=== PATIENT | male | born 1925 | race Caucasian/White ===

== ENCOUNTER 2016-12-28 21:08 | Inpatient (IN) | payer MEDICARE, OTHER ==
--- NOTE | ~2016-12-28 | OP ---
Record Of Operation [facility] [address] [place]. [address] NAME: SEMAJ HENDERSON : [birth year] STATUS : ADM IN PAT#: [id number] AGE: 89 ADM/REG DATE : 12/28/16 MR#: [id number] REPORT SERV DATE: 12/30/16 DICTATED BY: SEMAJ MONTOYA JR. DATE: 12/29/16 REPORT STATUS : Draft TRANSCRIBED BY: MODL DATE: 12/29/16 DATE OF PROCEDURE: 12/28/2016 SURGEON: Semaj Montoya M.D. HOTEL SERVER: Valerie Jensen. PROCEDURE: Exploratory laparotomy and splenectomy. PREOPERATIVE DIAGNOSIS: Splenic rupture. POSTOPERATIVE DIAGNOSIS: Splenic rupture. ANESTHESIA: General. INDICATIONS: This patient had presented to the emergency department with complaints of abdominal pain after having sustained a fall. He was admitted for observation and initially thought to have a potentially septic type, but then had progressive abdominal tenderness, had a CT scan which demonstrated splenic injury with hemoperitoneum. He had some drop in his hemoglobin and exploration for treatment was indicated. FINDINGS: On exploration of the abdomen, there was a large amount of blood with both clot and liquid present and a large amount within the left upper quadrant. The stomach was also grossly distended with air. The spleen was obviously injured with a significant hematoma incorporating two-thirds of the spleen and capsular tear. Splenectomy was performed. No other significant findings were encountered. DESCRIPTION OF PROCEDURE: With adequate general anesthesia, the patient was placed in a supine position. An upper midline incision was made. The dissection was carried down sharply through the subcutaneous tissues. The fascia and peritoneum were opened. The peritoneal cavity was entered. The above-noted findings were encountered. Then, the spleen was mobilized by dividing its inferior attachments colic limb with electrocautery. Then, the splenic vessels were identified, clamped, and divided securing the smaller vessels with clips, enlarged with clamps. Remaining soft tissue attachments were divided sharply and the spleen was then removed from the tissues. It was then submitted to Pathology. Bleeders were controlled with sutures of silk. The wound was irrigated with copious amounts of saline. Hemostasis was assured. The wound was closed in the fascial layer with a 0 PDS, subcutaneous Vicryl, and dermal Monocryl. An overlay negative pressure dressing was placed. The patient tolerated the procedure well and left the operating room in satisfactory condition. The estimated blood loss for the procedure was 100 mL. ISSA/DILIP Record Of [address] [address] NAME: SEMAJ HENDERSON JOYCE : [birth year] STATUS : ADM IN PAT#: [id number] AGE: 89 ADM/REG DATE : 12/28/16 MR#: [id number] REPORT SERV DATE: 12/30/16 DICTATED BY: SEMAJ MONTOYA JR. DATE: 12/29/16 REPORT STATUS : Draft TRANSCRIBED BY: DILIP DATE: 12/29/16 Semaj Montoya Jr., M.D. / [id number] CC: Ramirez Nye M.D.
--- NOTE | ~2016-12-28 | HP ---
History And Physical [place] [address] [facility] [place]. [address] NAME: SEMAJ HENDERSON : [birth year] STATUS : ADM IN [facility]#: [id number] AGE: 89 ADM/REG DATE : 12/28/16 MR#: [id number] REPORT SERV DATE: 12/29/16 DICTATED BY: LETY DE JESUS DATE: 12/28/16 REPORT STATUS : Draft TRANSCRIBED BY: MODL DATE: 12/28/16 DATE OF ADMISSION: 12/28/2016 CHIEF COMPLAINT: An 89-year-old male presenting with increasing chest symptoms and now hypotension with syncopal episode. HISTORY OF PRESENT ILLNESS: The patient's history was obtained through careful interview with patient and daughter coupled with review of [facility] medical records. The patient has really been ill for about six weeks now. He went to see his primary care physician about a month ago and was told that he had some kind of "viral" illness, possibly the flu, and was told specifically "it was not bacteria." Therefore, he was never placed on antibiotics at that time. He has continued to feel very ill and weak and debilitated and shaky. In two and half weeks, he went to see his primary care physician again and had blood work that looked "good." But today without warning, he simply passed out while he was at his [employer]. He hit the left side of his head and the left side of his chest and has been uncomfortable ever since. He describes a left chest discomfort, worsened by the fall and injury, in aching quality, 5 to 8/10 severity. No headache. No light headedness now. He has had recent nausea. No vomiting. No diarrhea. He denies at this time shortness of breath but he does have exertional fatigue. No cough. No fevers or chills. REVIEW OF SYSTEMS: Otherwise, a 14-point review of systems was obtained and was negative. PAST MEDICAL HISTORY: 1. 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 2. Hypertension. 3. L1 compression fracture. 4. Benign prostatic hypertrophy. 5. Thrombocytosis, on chronic hydroxyurea, followed by Dr. Nancy Addison. 6. No cardiac disease. No asthma. No previous pneumonia. PAST SURGICAL HISTORY: 1. Left shoulder surgery. 2. Inguinal hernia repair. 3. Basal cell carcinoma removed from the skin. History And Physical [place] [address] [facility] [place]. [address] NAME: SEMAJ HENDERSON : [birth year] STATUS : ADM IN [facility]#: [id number] AGE: 89 ADM/REG DATE : 12/28/16 MR#: [id number] REPORT SERV DATE: 12/29/16 DICTATED BY: LETY DE JESUS DATE: 12/28/16 REPORT STATUS : Draft TRANSCRIBED BY: DILIP DATE: 12/28/16 ALLERGIES: PENICILLIN, CIPRO, AND WASP VENOM. SOCIAL HISTORY: Quit smoking in 1969. Drinks occasional beer or gin. He has been to his for 64 years. They live in [place], [place]. He has two children. He is a retired senior analytical chemist, now part-time manages a subdivision. FAMILY HISTORY: Mother and father with cancer. Father with multiple myeloma. Mother with breast cancer. She of congestive heart failure. CURRENT MEDICATIONS: Include aspirin 81 mg p.o. daily, atenolol 12.5 mg p.o. daily, vitamin B complex, vitamin D, Lexapro 10 mg p.o. daily, glucosamine, hydroxyurea 500 mg p.o. b.i.d., Namenda XR 20 mg p.o. daily, saw palmetto 1350 mg p.o. in the morning and 900 mg in the evening, nasal spray, and Flomax 0.4 mg p.o. daily. PHYSICAL EXAMINATION: VITAL SIGNS: Temperature 98.8, pulse 66, blood pressure initially 80/39 but improved to 128/64 after normal saline bolus, respiratory rate 18, and O2 saturation 92% on 4 L nasal cannula. GENERAL: A pleasant, cooperative male, no distress at this time. HEENT: Pupils equal, round, and reactive to light. No conjunctival pallor. No scleral icterus. Nares are patent. Oropharynx is clear of obstruction. Dry mucous membranes. NECK: Trachea midline. No thyromegaly. LYMPH: No cervical lymphadenopathy. No supraclavicular lymphadenopathy. RESPIRATORY: The patient has diminished breath sounds at the base of both lungs, and I do not appreciate any focal egophony. However, no wheezes, no rales. He has a labored respiratory effort, however. CARDIOVASCULAR: Regular rate and rhythm. No murmurs, rubs, or gallops. No current extremity edema is appreciated. ABDOMEN: Soft, nontender, nondistended. Normal bowel sounds auscultated throughout. No hepatosplenomegaly. DERMATOLOGICAL: Diaphoretic. Warm extremities. No pallor. No cyanosis. PSYCHIATRIC: Normal affect. Good mood. Alert and oriented x3. LABORATORY DATA: White blood cell count 21.4, hemoglobin 11, hematocrit 32, MCV of 106.7, and platelets 623. Sodium 133, potassium 4.1, chloride 96, bicarb 23, BUN 23, creatinine 1.48 from baseline creatinine of 1.1, glucose 178. Troponin negative. INR 1.3. Liver enzymes within normal limits. STUDIES: 1. Chest x-ray by my own evaluation shows what appears to be a right middle lobe pneumonia. 2. EKG by my own evaluation shows sinus rhythm, right bundle-branch block. 3. CT scan of the brain without contrast shows no acute intracranial process. ASSESSMENT AND PLAN: History And Physical [address] [address] NAME: SEMAJ HENDERSON : [birth year] STATUS : ADM IN [facility]#: [id number] AGE: 89 ADM/REG DATE : 12/28/16 MR#: [id number] REPORT SERV DATE: 12/29/16 DICTATED BY: LETY DE JESUS DATE: 12/28/16 REPORT STATUS : Draft TRANSCRIBED BY: DILIP DATE: 12/28/16 1. Sepsis with white blood cell count of 21.4, hypotension, lactic acid pending, hypoxia. Check blood cultures. Place on IV antibiotics. Hypotension responded to IV fluid boluses with normotensive state for two hours in the emergency department afterwards. 2. Hypoxic respiratory failure. Provide supportive care. 3. Community-acquired pneumonia. Check blood cultures. Place on IV antibiotics. The possibility of a post influenza pneumonia (?). We will cover with IV vancomycin for now. 4. Acute kidney injury with shock and syncope. Place on IV fluids. Check urinalysis. 5. Chronic thrombocytosis, on hydroxyurea. KPL/MODL Lety De Jesus M.D. / [id number] CC: Annette Abrams M.D.
--- NOTE | ~2016-12-28 | DS ---
Discharge Summary [facility] [address] [place]. [address] NAME: SEMAJ HENDERSON : [birth year] STATUS : DIS IN PAT#: [id number] AGE: 89 ADM/REG DATE : 12/28/16 MR#: [id number] REPORT SERV DATE: 01/08/17 DICTATED BY: LEVAR PERDUE DATE: 01/07/17 REPORT STATUS : Draft TRANSCRIBED BY: MODL DATE: 01/07/17 ADMISSION DATE: 12/28/2016 DISCHARGE DATE: 01/07/2017 DISCHARGE DIAGNOSES: 1. Splenic rupture, status post ex lap and splenectomy on 12/[address] Galindo. 2. Hypertension. 3. Orthostatic hypotension. 4. History of syncope with positive tilt on preadmission beta-joellen. 5. Myeloproliferative disorder with thrombocytosis, on Hydrea. 6. Prediabetes. 7. Left ninth rib fracture associated with a fall. 8. Acute respiratory failure, hypoxic on admission. 9. Pulmonary infiltrates, thought to be atelectasis. 10.Voiding dysfunction. 11.Osteoporosis. 12.Acute blood loss anemia related to above, status post two PRBCs. CONSULTS: 1. General Surgery, Dr. Galindo. 2. Oncology was also contacted, although not formally consulted. PROCEDURES: Ex lap and splenectomy on 12/28/[address] Galindo. HOSPITAL COURSE: This is an 89-year-old gentleman, who was admitted to the hospital with initial diagnosis of sepsis perhaps related to community-acquired pneumonia. The patient also had sustained a fall. For details, please refer to excellent H and P by Dr. Irby. In summary, by the second day of the hospital stay, the patient was found to have a splenic rupture and he underwent an emergent ex lap with splenectomy as mentioned above. For details, please refer to interim discharge summary dictated by Dr. Ramirez Nye. I assumed care of this patient on 01/05/2017 and by then, the patient had already made significant recovery and he was doing well. The patient had an echocardiogram that was pending, which was quite benign with LV systolic function of 55% with mild LV diastolic dysfunction, right ventricle systolic function was intact, and the patient just had a moderate mitral regurgitation with left atrial dilatation. Otherwise, the patient was simply monitored for continued recovery postop. The patient was continuing to have hypoxia, requiring oxygen and thus, he was given a dose of Lasix with which the patient diuresed well and his oxygen requirement actually decreased. The patient's electrolyte has been completely stable throughout the entire time I took care of the patient. In regard to his thrombocytosis, the patient was started on double the dose of hydroxyurea when I assumed care. The patient's platelet was as high as 780, but it was on a downtrend and on the day of discharge, it is down to 696. The patient's white blood cell count was slightly elevated at 15.8 on the day of discharge, but his procalcitonin level was normal and he did not exhibit any signs and symptoms of sepsis. The patient is now being discharged to [facility] to continue rehab and to be continued to be monitored closely. Discharge Summary [address] [place]. [address] NAME: SEMAJ HENDERSON : [birth year] STATUS : DIS IN [facility]#: [id number] AGE: 89 ADM/REG DATE : 12/28/16 MR#: [id number] REPORT SERV DATE: 01/08/17 DICTATED BY: LEVAR PERDUE DATE: 01/07/17 REPORT STATUS : Draft TRANSCRIBED BY: DILIP DATE: 01/07/17 DISCHARGE MEDICATIONS: No changes, except for increased hydroxyurea dose to twice daily. DISPOSITION: Discharged to [facility]. FOLLOWUP: 1. Please follow up with PCP in the next one to two weeks. 2. Please follow up with Dr. Nancy Addison, his oncologist, in the next one to two weeks. 3. Please follow up with Dr. Galindo as instructed. A total of 40 minutes spent in coordinating this patient's discharge today. Cherelle/DILIP Levar Perdue MD / [id number] CC: Levar Perdue MD
--- NOTE | ~2016-12-28 | IDS ---
Interim Discharge Summary [place] [id number] [facility] [place]. [address] NAME: SEMAJ HENDERSON : [birth year] STATUS : ADM IN [facility]#: [id number] AGE: 89 ADM/REG DATE : 12/28/16 MR#: [id number] REPORT SERV DATE: 01/05/17 DICTATED BY: DUGLAS NYE DATE: 01/04/17 REPORT STATUS : Draft TRANSCRIBED BY: MODL DATE: 01/04/17 ADMISSION DATE: 12/28/2016 DISCHARGE DATE: CURRENT DIAGNOSES: 1. Splenic rupture status post exploratory laparotomy and splenectomy 12/28/2016, Dr. Galindo. 2. Hypertension. 3. Orthostatic hypotension. 4. History of syncope with positive tilt on pre-admission beta-joellen. 5. Myeloproliferative disorder with thrombocytosis on Hydrea. Increased thrombocytosis post splenectomy. 6. Pre-diabetes. 7. Left 9th rib fracture, associated with fall. 8. Acute respiratory failure, hypoxemic, present on admission. 9. Pulmonary infiltrates, thought to be atelectasis. 10.Voiding dysfunction. 11.Osteoporosis with history of compression fractures. 12.Acute blood loss anemia associated with present illness, requiring transfusion. 13.Electrolyte abnormalities associated with present illness and postop resuscitation, improved. OPERATION AND PROCEDURES: See above. PRESENT ILLNESS: This is an 89-year-old white male who was triaged in the emergency room on 12/28/2016 at 2108 hours after a fall. Initial blood pressure in the emergency room was 136/52, repeat blood pressure at 2149, 80/39. Temp was 98.2, pulse 66, respirations 18, O2 saturation 92% on 4 L. After evaluation in the emergency room, diagnoses were: 1. Syncope. 2. Leukocytosis. 3. Pneumonia. He was referred to the Hospitalist Service. He was seen by Dr. Carlos Irby and admitted as described on admission history and physical examination. Additional history included progressive weakness subsequent to what was thought to be a viral illness approximately 6 weeks prior to admission. On the day of admission, he either passed out or fell forward while he was working in his [employer]. He hit the left side of his head and left chest. ADDITIONAL HISTORY: Per Dr. Irby. PHYSICAL EXAMINATION: Per Dr. Irby. ADMISSION LABORATORY: Per Dr. Irby. Interim Discharge Summary [facility] [address] [address] NAME: SEMAJ HENDERSON : [birth year] STATUS : ADM IN [facility]#: [id number] AGE: 89 ADM/REG DATE : 12/28/16 MR#: [id number] REPORT SERV DATE: 01/05/17 DICTATED BY: DUGLAS NYE DATE: 01/04/17 REPORT STATUS : Draft TRANSCRIBED BY: MODL DATE: 01/04/17 HOSPITAL COURSE: He was admitted by Dr. Irby with diagnoses: 1. Sepsis with white blood cell count of 21.4, hypotension, and hypoxia. 2. Hypoxemic respiratory failure. 3. Community-acquired pneumonia. 4. Acute kidney injury with shock and syncope. 5. Chronic thrombocytosis on Hydrea. He was admitted to [address] [place] [address]. Cultures were obtained. He was started on broad-spectrum antimicrobial therapy. His hospital care was assumed by the undersigned. When initially seen by me on 12/29, his history was reviewed. Of note is that he was having persistent left chest pain where he felt that was pleuritic. In addition, he had noticed abdominal distention. On exam, his abdomen was soft, but very distended. Bowel sounds were diminished. He was tender in his left upper quadrant with suspected palpable spleen. Concern at that time was possible splenic hematoma. A stat CT chest and abdomen was done. Findings were splenic laceration and subcapsular hematoma with hemoperitoneum and moderate ascites around the liver. There was gaseous distention of the stomach. There was a nondisplaced fracture of left 9th rib. This was immediately discussed with reading radiologist, then the patient and family. Emergent surgical consultation was obtained with Dr. Galindo. Dr. Galindo saw the patient emergently and the above-mentioned procedure was performed. He was managed in the intensive care unit by the ICU team on 12/30 and 12/31. His subsequent floor care has been by the undersigned from 01/01 until now. He has had a slow recovery. He required NG tube placement until today because of a high gastric output and absent bowel function. He has required additional crystalloid volume resuscitation to replace his NG output and electrolyte management for hyponatremia and hypokalemia. He has required additional blood pressure management for supine hypertension, but he has also had some documented symptomatic orthostatic hypotension (relative). He has underlying myeloproliferative disorder with thrombocytosis and has been on Hydrea. His platelet counts post splenectomy have increased to over 700,000. I spoke with his oncologist, Dr. Nancy Addison, who suggested increasing his Hydrea, which was done today. He has had some persistent pulmonary congestion, atelectasis, and pleural effusions and has been maintained on Rocephin since admission with bronchodilator therapy. He has been seen by Physical Therapy. Inpatient rehab is recommended. Pending at this dictation is an echocardiogram. Hospitalist care to be assumed by [place] [id number] Interim Discharge Summary [address] [address] NAME: SEMAJ HENDERSON : [birth year] STATUS : ADM IN [facility]#: [id number] AGE: 89 ADM/REG DATE : 12/28/16 MR#: [id number] REPORT SERV DATE: 01/05/17 DICTATED BY: DUGLAS NYE DATE: 01/04/17 REPORT STATUS : Draft TRANSCRIBED BY: DILIP DATE: 01/04/17 hospitalist team on 01/05. DD/DILIP Duglas Nye M.D. / [id number] CC: Duglas Nye M.D.
[2016-12-28 21:59] LABS: BASOPHILS 0.2 %; BASOPHILS ABSOLUTE 0.05 10/3/uL (0.0-0.16); EOSINOPHILS 0.1 %; EOSINOPHILS ABSOLUTE 0.03 10/3/uL (0.0-0.53); IMMATURE GRANULOCYTES 0.7 %; IMMATURE GRANULOCYTES ABSOLUTE 0.14 10/3/uL (0.0-0.11); LYMPHOCYTES 6.3 %; LYMPHOCYTES ABSOLUTE 1.35 10/3/uL (0.67-4.30); MEAN CORPUS HGB CONC 35.3 g/dL (32.0-36.0); MEAN PLATELET VOLUME 9.5 fL (9.2-13.0); MONOCYTES 5.8 %; MONOCYTES ABSOLUTE 1.24 10/3/uL (0.21-1.20); NEUTROPHILS 86.9 %; NEUTROPHILS ABSOLUTE 18.54 10/3/uL (2.02-8.40); RBC DISTRIBUTION WIDTH 13.1 % (12.0-16.0)
[2016-12-28 22:01] LABS: HEMATOCRIT 31.7 % (40.0-51.0); HEMOGLOBIN 11.2 g/dL (13.6-17.8); MANUAL DIFF NO %; MEAN CORPUSCULAR HEMOGLOB 37.7 pg (26.0-34.0); MEAN CORPUSCULAR VOLUME 106.7 fL (80-100); PLATELET COUNT 623 10/3/uL (150-400); RED CELL COUNT 2.97 10/6/uL (4.7-6.1); WHITE BLOOD CELLS 21.4 10/3/uL (4.5-10.5)
[2016-12-28 22:06] LABS: INTERNATIONAL NORMAL RATI 1.3 UNITS (-); PROTIME (NOT ORD) 15.8 SEC (12.0-14.5)
[2016-12-28 22:17] LABS: BUN (BLOOD UREA NITROGEN) 23 MG/DL (6-23); CALCIUM, SERUM 8.2 MG/DL (8.5-10.4); CHLORIDE, SERUM 96 MMOL/L (96-112); CREATININE 1.48 MG/DL (0.70-1.30); GFR AFRICAN AMERICAN 48 ML/MIN (>=60); GFR NON AFRICAN AMERICAN 41 ML/MIN (>=60); POTASSIUM, SERUM 4.1 MMOL/L (3.5-5.3); SGOT(AST) 37 U/L (5-40); SGPT(ALT) 26 U/L (5-65); SODIUM, SERUM 133 MMOL/L (135-148); TOTAL BILIRUBIN 0.6 MG/DL (0-1.2); TOTAL PROTEIN 6.1 G/DL (6.0-8.5); TROPONIN I <0.02 NG/ML (<0.05)
[2016-12-28 22:19] LABS: A/G RATIO 1.3 (0.7-1.9); ALBUMIN 3.5 G/DL (3.5-5.0); ALKALINE PHOSPHATASE 40 U/L (45-117); CO2 (CARBON DIOXIDE) 23 MMOL/L (24-34); GLOBULIN 2.6 G/DL (2.5-4.1); GLUCOSE, SERUM 178 MG/DL (60-99)
[2016-12-28] MEDS ORDERED: LEXAPRO10 PO (22:39)
[2016-12-28] MEDS ORDERED: SAW PALMETT2 PO ×2 (22:39)
[2016-12-28] MEDS ORDERED: VITAMIN B PO (22:40)
[2016-12-28] MEDS ORDERED: HYDREA PO ×2 (22:44)
[2016-12-28] MEDS ORDERED: VITAMIN D1000 UNI1 PO (22:44)
[2016-12-28] MEDS ORDERED: ATEN25 PO (22:45)
[2016-12-28] MEDS ORDERED: ASAB PO (22:45)
[2016-12-28] MEDS ORDERED: GLUCOSAMINEPO PO (22:45)
[2016-12-28] MEDS ORDERED: NAMENXR28 PO (22:45)
[2016-12-28] MEDS ORDERED: FLOMAX4 PO (22:45)
[2016-12-28] MEDS ORDERED: OCEAN NAS (22:46)
[2016-12-29 00:55] LABS: BE (BASE EXCESS) -4.5 MEQ/L (0 +/- 2.5); CARBOXYHEMOGLOBIN 0.7 % (0-3); HCO3 (ACTUAL BICARBONATE) 20.9 MEQ/L (23-27); HEMOBLOGIN CONTENT 10.3 G/DL (14-18); INSTRUMENT SERIAL # 8087; METHEMOGLOBIN 0.2 % (0-3); O2 CONTENT 12.3 VOL% (18-24); PCO2 (CO2 TENSION) 40 MMHG (35-45); PO2 (O2 TENSION) 56 MMHG (79-93); SAMPLE Arterial; pH 7.34 (7.37-7.43)
[2016-12-29 06:20] LABS: BASOPHILS 0 %; BASOPHILS ABSOLUTE 0.01 10/3/uL (0.0-0.16); EOSINOPHILS 0 %; HEMOGLOBIN 10.1 g/dL (13.6-17.8); IMMATURE GRANULOCYTES 0.5 %; IMMATURE GRANULOCYTES ABSOLUTE 0.11 10/3/uL (0.0-0.11); LYMPHOCYTES 4.8 %; LYMPHOCYTES ABSOLUTE 1.01 10/3/uL (0.67-4.30); MEAN CORPUS HGB CONC 35.4 g/dL (32.0-36.0); MEAN CORPUSCULAR HEMOGLOB 38.3 pg (26.0-34.0); MEAN PLATELET VOLUME 9.3 fL (9.2-13.0); MONOCYTES ABSOLUTE 1.26 10/3/uL (0.21-1.20); NEUTROPHILS 88.7 %; NEUTROPHILS ABSOLUTE 18.45 10/3/uL (2.02-8.40); PLATELET COUNT 552 10/3/uL (150-400); RED CELL COUNT 2.64 10/6/uL (4.7-6.1); WHITE BLOOD CELLS 20.8 10/3/uL (4.5-10.5)
[2016-12-29 06:21] LABS: HEMATOCRIT 28.5 % (40.0-51.0); MANUAL DIFF NO %
[2016-12-29 06:22] LABS: INTERNATIONAL NORMAL RATI 1.3 UNITS (-); PROTIME (NOT ORD) 15.7 SEC (12.0-14.5)
[2016-12-29 06:23] LABS: PARTIAL THROMBO TIME 32.2 SEC (22.5-37.2)
[2016-12-29 06:44] LABS: ALBUMIN 3.3 G/DL (3.5-5.0); ALKALINE PHOSPHATASE 40 U/L (45-117); B NATRIURETIC PEPTIDE (BNP) 64.4 PG/ML (< 100.0); BUN (BLOOD UREA NITROGEN) 23 MG/DL (6-23); CALCIUM, SERUM 7.7 MG/DL (8.5-10.4); CHLORIDE, SERUM 100 MMOL/L (96-112); CO2 (CARBON DIOXIDE) 22 MMOL/L (24-34); CREATININE 1.26 MG/DL (0.70-1.30); GFR AFRICAN AMERICAN 58 ML/MIN (>=60); GFR NON AFRICAN AMERICAN 50 ML/MIN (>=60); POTASSIUM, SERUM 4.5 MMOL/L (3.5-5.3); SGOT(AST) 44 U/L (5-40); SGPT(ALT) 31 U/L (5-65); SODIUM, SERUM 133 MMOL/L (135-148); TOTAL BILIRUBIN 0.9 MG/DL (0-1.2); TOTAL PROTEIN 5.3 G/DL (6.0-8.5); TROPONIN I <0.02 NG/ML (<0.05)
[2016-12-29 06:45] LABS: A/G RATIO 1.7 (0.7-1.9); GLUCOSE, SERUM 136 MG/DL (60-99); ULTRASENSITIVE TSH 0.612 MCIU/ML (0.358-3.740)
[2016-12-29 07:20] LABS: GLYCOHEMOGLOBIN (HbA1c) 5.8 % (4.7-6.1)
[2016-12-29 07:30] LABS: PROCALCITONIN 0.15 ng/mL (<0.5)
[2016-12-29 10:53] LABS: C-REACTIVE PROTEIN 29.8 MG/L (<8.0)
[2016-12-29 13:19] LABS: BASOPHILS 0 %; BASOPHILS ABSOLUTE 0.01 10/3/uL (0.0-0.16); EOSINOPHILS 0 %; HEMATOCRIT 27.9 % (40.0-51.0); HEMOGLOBIN 9.8 g/dL (13.6-17.8); IMMATURE GRANULOCYTES 0.4 %; IMMATURE GRANULOCYTES ABSOLUTE 0.08 10/3/uL (0.0-0.11); LYMPHOCYTES 3.2 %; LYMPHOCYTES ABSOLUTE 0.66 10/3/uL (0.67-4.30); MEAN CORPUS HGB CONC 35.1 g/dL (32.0-36.0); MEAN CORPUSCULAR HEMOGLOB 38.1 pg (26.0-34.0); MEAN CORPUSCULAR VOLUME 108.6 fL (80-100); MEAN PLATELET VOLUME 9.5 fL (9.2-13.0); MONOCYTES 5.6 %; MONOCYTES ABSOLUTE 1.15 10/3/uL (0.21-1.20); NEUTROPHILS 90.8 %; NEUTROPHILS ABSOLUTE 18.54 10/3/uL (2.02-8.40); PLATELET COUNT 645 10/3/uL (150-400); RBC DISTRIBUTION WIDTH 13.1 % (12.0-16.0); RED CELL COUNT 2.57 10/6/uL (4.7-6.1); WHITE BLOOD CELLS 20.4 10/3/uL (4.5-10.5)
[2016-12-29 13:20] LABS: MANUAL DIFF NO %
[2016-12-29 13:34] LABS: BUN (BLOOD UREA NITROGEN) 22 MG/DL (6-23); CALCIUM, SERUM 8.3 MG/DL (8.5-10.4); CHLORIDE, SERUM 101 MMOL/L (96-112); CO2 (CARBON DIOXIDE) 23 MMOL/L (24-34); CREATININE 1.31 MG/DL (0.70-1.30); GFR AFRICAN AMERICAN 56 ML/MIN (>=60); GFR NON AFRICAN AMERICAN 48 ML/MIN (>=60); GLUCOSE, SERUM 166 MG/DL (60-99); POTASSIUM, SERUM 4.7 MMOL/L (3.5-5.3); SODIUM, SERUM 133 MMOL/L (135-148)
[2016-12-29 14:34] LABS: BE (BASE EXCESS) -4.5 MEQ/L (0 +/- 2.5); CARBOXYHEMOGLOBIN 0.3 % (0-3); HCO3 (ACTUAL BICARBONATE) 21.2 MEQ/L (23-27); HEMOBLOGIN CONTENT 9.4 G/DL (14-18); INSTRUMENT SERIAL # 11843; METHEMOGLOBIN 0.6 % (0-3); O2 CONTENT 13.6 VOL% (18-24); OPERATOR ID 32214; PCO2 (CO2 TENSION) 42 MMHG (35-45); PO2 (O2 TENSION) 264 MMHG (79-93); SAMPLE Arterial; pH 7.33 (7.37-7.43)
[2016-12-29 14:35] LABS: HEMATOCRIT 24.3 % (40.0-51.0); HEMOGLOBIN 8.3 g/dL (13.6-17.8); MEAN CORPUS HGB CONC 34.2 g/dL (32.0-36.0); MEAN CORPUSCULAR HEMOGLOB 36.9 pg (26.0-34.0); MEAN PLATELET VOLUME 8.8 fL (9.2-13.0); PLATELET COUNT 563 10/3/uL (150-400); RBC DISTRIBUTION WIDTH 13.1 % (12.0-16.0); RED CELL COUNT 2.25 10/6/uL (4.7-6.1); WHITE BLOOD CELLS 21.8 10/3/uL (4.5-10.5)
[2016-12-29 14:36] LABS: MANUAL DIFF NO %
[2016-12-29 14:53] LABS: BAND NEUTROPHILS 1 %; LYMPHOCYTES 7 %; LYMPHOCYTES ABSOLUTE (CALC) 1.53 10/3/uL (0.67-4.30); MONOCYTES 2 %; MONOCYTES ABSOLUTE (CALC) 0.44 10/3/uL (0.21-1.20); NEUTROPHILS ABSOLUTE (CALC) 19.84 10/3/uL (2.02-8.40); PLATELET ESTIMATE SLT INC (ADEQUATE); SEGMENTED NEUTROPHIL (0) 90 %; TOTAL NUCLEATED CELLS 100
[2016-12-29 16:34] LABS: BASOPHILS 0 %; BASOPHILS ABSOLUTE 0.01 10/3/uL (0.0-0.16); EOSINOPHILS 0 %; EOSINOPHILS ABSOLUTE 0.01 10/3/uL (0.0-0.53); HEMATOCRIT 21.9 % (40.0-51.0); HEMOGLOBIN 7.6 g/dL (13.6-17.8); IMMATURE GRANULOCYTES 0.8 %; IMMATURE GRANULOCYTES ABSOLUTE 0.19 10/3/uL (0.0-0.11); LYMPHOCYTES 2.6 %; LYMPHOCYTES ABSOLUTE 0.58 10/3/uL (0.67-4.30); MEAN CORPUS HGB CONC 34.7 g/dL (32.0-36.0); MEAN CORPUSCULAR HEMOGLOB 37.6 pg (26.0-34.0); MEAN CORPUSCULAR VOLUME 108.4 fL (80-100); MEAN PLATELET VOLUME 8.9 fL (9.2-13.0); MONOCYTES 6.7 %; MONOCYTES ABSOLUTE 1.52 10/3/uL (0.21-1.20); NEUTROPHILS 89.9 %; PLATELET COUNT 526 10/3/uL (150-400); RED CELL COUNT 2.02 10/6/uL (4.7-6.1); WHITE BLOOD CELLS 22.7 10/3/uL (4.5-10.5)
[2016-12-29 16:35] LABS: MANUAL DIFF NO %
[2016-12-29 16:40] LABS: BUN (BLOOD UREA NITROGEN) 20 MG/DL (6-23); CHLORIDE, SERUM 103 MMOL/L (96-112); CO2 (CARBON DIOXIDE) 22 MMOL/L (24-34); CREATININE 1.19 MG/DL (0.70-1.30); GFR AFRICAN AMERICAN 62 ML/MIN (>=60); GFR NON AFRICAN AMERICAN 54 ML/MIN (>=60); GLUCOSE, SERUM 182 MG/DL (60-99); POTASSIUM, SERUM 4.8 MMOL/L (3.5-5.3); SODIUM, SERUM 133 MMOL/L (135-148)
[2016-12-29 16:52] LABS: LYMPHOCYTES 3 %; LYMPHOCYTES ABSOLUTE (CALC) 0.68 10/3/uL (0.67-4.30); MONOCYTES 2 %; MONOCYTES ABSOLUTE (CALC) 0.45 10/3/uL (0.21-1.20); NEUTROPHILS ABSOLUTE (CALC) 21.57 10/3/uL (2.02-8.40); SEGMENTED NEUTROPHIL (0) 95 %; TOTAL NUCLEATED CELLS 100
[2016-12-29 16:53] LABS: PLATELET ESTIMATE SLT INC (ADEQUATE); POLYCHROMASIA 1+ (2-5/OIF) (0-1/OIF)
[2016-12-30 04:54] LABS: A/G RATIO 1.3 (0.7-1.9); ALBUMIN 2.8 G/DL (3.5-5.0); ALKALINE PHOSPHATASE 30 U/L (45-117); BUN (BLOOD UREA NITROGEN) 15 MG/DL (6-23); CALCIUM, SERUM 7.6 MG/DL (8.5-10.4); CHLORIDE, SERUM 103 MMOL/L (96-112); CO2 (CARBON DIOXIDE) 23 MMOL/L (24-34); CREATININE 0.92 MG/DL (0.70-1.30); GFR AFRICAN AMERICAN 85 ML/MIN (>=60); GFR NON AFRICAN AMERICAN 73 ML/MIN (>=60); GLOBULIN 2.2 G/DL (2.5-4.1); GLUCOSE, SERUM 117 MG/DL (60-99); POTASSIUM, SERUM 4.3 MMOL/L (3.5-5.3); SGOT(AST) 32 U/L (5-40); SGPT(ALT) 21 U/L (5-65); SODIUM, SERUM 135 MMOL/L (135-148); TOTAL BILIRUBIN 0.4 MG/DL (0-1.2)
[2016-12-30 04:58] LABS: BASOPHILS 0.1 %; BASOPHILS ABSOLUTE 0.01 10/3/uL (0.0-0.16); EOSINOPHILS 0 %; IMMATURE GRANULOCYTES 0.3 %; IMMATURE GRANULOCYTES ABSOLUTE 0.06 10/3/uL (0.0-0.11); LYMPHOCYTES 6.2 %; LYMPHOCYTES ABSOLUTE 1.23 10/3/uL (0.67-4.30); MEAN CORPUS HGB CONC 35.6 g/dL (32.0-36.0); MEAN CORPUSCULAR HEMOGLOB 38.3 pg (26.0-34.0); MEAN CORPUSCULAR VOLUME 107.8 fL (80-100); MEAN PLATELET VOLUME 9.2 fL (9.2-13.0); MONOCYTES 10.6 %; NEUTROPHILS 82.8 %; NEUTROPHILS ABSOLUTE 16.35 10/3/uL (2.02-8.40); PLATELET COUNT 530 10/3/uL (150-400); RBC DISTRIBUTION WIDTH 13.2 % (12.0-16.0); WHITE BLOOD CELLS 19.8 10/3/uL (4.5-10.5)
[2016-12-30 04:59] LABS: HEMATOCRIT 19.4 % (40.0-51.0); HEMOGLOBIN 6.9 g/dL (13.6-17.8)
[2016-12-30 05:00] LABS: MANUAL DIFF NO %
[2016-12-30 17:26] LABS: HEMATOCRIT 25.4 % (40.0-51.0); HEMOGLOBIN 8.8 g/dL (13.6-17.8)
[2016-12-31 04:13] LABS: BASOPHILS 0.1 %; BASOPHILS ABSOLUTE 0.01 10/3/uL (0.0-0.16); EOSINOPHILS 0.1 %; EOSINOPHILS ABSOLUTE 0.01 10/3/uL (0.0-0.53); HEMATOCRIT 24.3 % (40.0-51.0); HEMOGLOBIN 8.5 g/dL (13.6-17.8); IMMATURE GRANULOCYTES 0.6 %; LYMPHOCYTES 5.4 %; LYMPHOCYTES ABSOLUTE 0.97 10/3/uL (0.67-4.30); MEAN CORPUSCULAR HEMOGLOB 35.3 pg (26.0-34.0); MEAN PLATELET VOLUME 9.2 fL (9.2-13.0); MONOCYTES 12.9 %; MONOCYTES ABSOLUTE 2.31 10/3/uL (0.21-1.20); NEUTROPHILS 80.9 %; NEUTROPHILS ABSOLUTE 14.55 10/3/uL (2.02-8.40); PLATELET COUNT 565 10/3/uL (150-400)
[2016-12-31 04:17] LABS: MANUAL DIFF NO %; MEAN CORPUSCULAR VOLUME 100.8 fL (80-100); RBC DISTRIBUTION WIDTH 19.2 % (12.0-16.0); RED CELL COUNT 2.41 10/6/uL (4.7-6.1)
[2016-12-31 04:37] LABS: A/G RATIO 1.2 (0.7-1.9); ALBUMIN 2.6 G/DL (3.5-5.0); ALKALINE PHOSPHATASE 34 U/L (45-117); BUN (BLOOD UREA NITROGEN) 12 MG/DL (6-23); CALCIUM, SERUM 7.7 MG/DL (8.5-10.4); CHLORIDE, SERUM 99 MMOL/L (96-112); CO2 (CARBON DIOXIDE) 26 MMOL/L (24-34); CREATININE 0.86 MG/DL (0.70-1.30); GFR AFRICAN AMERICAN 89 ML/MIN (>=60); GFR NON AFRICAN AMERICAN 77 ML/MIN (>=60); GLOBULIN 2.2 G/DL (2.5-4.1); GLUCOSE, SERUM 130 MG/DL (60-99); POTASSIUM, SERUM 4.3 MMOL/L (3.5-5.3); SGOT(AST) 26 U/L (5-40); SGPT(ALT) 22 U/L (5-65); SODIUM, SERUM 134 MMOL/L (135-148); TOTAL BILIRUBIN 0.5 MG/DL (0-1.2); TOTAL PROTEIN 4.8 G/DL (6.0-8.5)
[2017-01-01 06:59] LABS: BASOPHILS 0.1 %; BASOPHILS ABSOLUTE 0.02 10/3/uL (0.0-0.16); EOSINOPHILS 0.1 %; EOSINOPHILS ABSOLUTE 0.02 10/3/uL (0.0-0.53); HEMATOCRIT 26.2 % (40.0-51.0); HEMOGLOBIN 9.1 g/dL (13.6-17.8); IMMATURE GRANULOCYTES 0.7 %; IMMATURE GRANULOCYTES ABSOLUTE 0.12 10/3/uL (0.0-0.11); MEAN CORPUS HGB CONC 34.7 g/dL (32.0-36.0); MEAN CORPUSCULAR HEMOGLOB 35.1 pg (26.0-34.0); MEAN CORPUSCULAR VOLUME 101.2 fL (80-100); MEAN PLATELET VOLUME 9.6 fL (9.2-13.0); MONOCYTES 16.3 %; MONOCYTES ABSOLUTE 2.99 10/3/uL (0.21-1.20); NEUTROPHILS 76.8 %; NEUTROPHILS ABSOLUTE 14.09 10/3/uL (2.02-8.40); NUCLEATED RED BLOOD CELLS 0.2 /100WBC (0-0); PLATELET COUNT 682 10/3/uL (150-400); RED CELL COUNT 2.59 10/6/uL (4.7-6.1); WHITE BLOOD CELLS 18.3 10/3/uL (4.5-10.5)
[2017-01-01 07:05] LABS: MANUAL DIFF NO %
[2017-01-01 07:10] LABS: ALBUMIN 2.7 G/DL (3.5-5.0); BUN (BLOOD UREA NITROGEN) 12 MG/DL (6-23); CHLORIDE, SERUM 92 MMOL/L (96-112); CO2 (CARBON DIOXIDE) 28 MMOL/L (24-34); CREATININE 0.88 MG/DL (0.70-1.30); GFR AFRICAN AMERICAN 88 ML/MIN (>=60); GFR NON AFRICAN AMERICAN 76 ML/MIN (>=60); GLUCOSE, SERUM 139 MG/DL (60-99); POTASSIUM, SERUM 3.8 MMOL/L (3.5-5.3); SGOT(AST) 25 U/L (5-40); SGPT(ALT) 20 U/L (5-65); SODIUM, SERUM 131 MMOL/L (135-148); TOTAL BILIRUBIN 0.6 MG/DL (0-1.2)
[2017-01-01 07:12] LABS: A/G RATIO 0.9 (0.7-1.9); ALKALINE PHOSPHATASE 51 U/L (45-117); GLOBULIN 3.1 G/DL (2.5-4.1); TOTAL PROTEIN 5.8 G/DL (6.0-8.5)
[2017-01-02 06:10] LABS: BASOPHILS 0.1 %; BASOPHILS ABSOLUTE 0.02 10/3/uL (0.0-0.16); EOSINOPHILS 0.3 %; EOSINOPHILS ABSOLUTE 0.05 10/3/uL (0.0-0.53); HEMATOCRIT 25.6 % (40.0-51.0); IMMATURE GRANULOCYTES 0.6 %; IMMATURE GRANULOCYTES ABSOLUTE 0.11 10/3/uL (0.0-0.11); LYMPHOCYTES 7.4 %; LYMPHOCYTES ABSOLUTE 1.26 10/3/uL (0.67-4.30); MEAN CORPUS HGB CONC 35.2 g/dL (32.0-36.0); MEAN CORPUSCULAR HEMOGLOB 35.4 pg (26.0-34.0); MEAN CORPUSCULAR VOLUME 100.8 fL (80-100); MEAN PLATELET VOLUME 9.5 fL (9.2-13.0); MONOCYTES 16.6 %; MONOCYTES ABSOLUTE 2.81 10/3/uL (0.21-1.20); NEUTROPHILS ABSOLUTE 12.69 10/3/uL (2.02-8.40); PLATELET COUNT 687 10/3/uL (150-400); RBC DISTRIBUTION WIDTH 17.1 % (12.0-16.0); RED CELL COUNT 2.54 10/6/uL (4.7-6.1); WHITE BLOOD CELLS 16.9 10/3/uL (4.5-10.5)
[2017-01-02 06:12] LABS: CALCIUM, SERUM 8.2 MG/DL (8.5-10.4); CHLORIDE, SERUM 93 MMOL/L (96-112); CREATININE 0.89 MG/DL (0.70-1.30); GFR AFRICAN AMERICAN 88 ML/MIN (>=60); GFR NON AFRICAN AMERICAN 76 ML/MIN (>=60); MANUAL DIFF NO %; POTASSIUM, SERUM 3.3 MMOL/L (3.5-5.3); SODIUM, SERUM 135 MMOL/L (135-148)
[2017-01-02 06:14] LABS: BUN (BLOOD UREA NITROGEN) 17 MG/DL (6-23); CO2 (CARBON DIOXIDE) 33 MMOL/L (24-34); GLUCOSE, SERUM 100 MG/DL (60-99)
[2017-01-02 14:56] LABS: HEMATOCRIT 27.2 % (40.0-51.0); HEMOGLOBIN 9.4 g/dL (13.6-17.8)
[2017-01-03 06:51] LABS: BASOPHILS 0.3 %; BASOPHILS ABSOLUTE 0.06 10/3/uL (0.0-0.16); EOSINOPHILS 0.7 %; EOSINOPHILS ABSOLUTE 0.13 10/3/uL (0.0-0.53); HEMATOCRIT 25.2 % (40.0-51.0); HEMOGLOBIN 8.5 g/dL (13.6-17.8); IMMATURE GRANULOCYTES 0.5 %; IMMATURE GRANULOCYTES ABSOLUTE 0.09 10/3/uL (0.0-0.11); LYMPHOCYTES 8.6 %; LYMPHOCYTES ABSOLUTE 1.52 10/3/uL (0.67-4.30); MEAN CORPUS HGB CONC 33.7 g/dL (32.0-36.0); MEAN CORPUSCULAR VOLUME 103.7 fL (80-100); MEAN PLATELET VOLUME 9.5 fL (9.2-13.0); MONOCYTES 18.3 %; MONOCYTES ABSOLUTE 3.23 10/3/uL (0.21-1.20); NEUTROPHILS 71.6 %; NEUTROPHILS ABSOLUTE 12.62 10/3/uL (2.02-8.40); NUCLEATED RED BLOOD CELLS 0.4 /100WBC (0-0); RBC DISTRIBUTION WIDTH 16.6 % (12.0-16.0); RED CELL COUNT 2.43 10/6/uL (4.7-6.1); WHITE BLOOD CELLS 17.7 10/3/uL (4.5-10.5)
[2017-01-03 06:54] LABS: PLATELET COUNT 731 10/3/uL (150-400)
[2017-01-03 06:55] LABS: MANUAL DIFF NO %
[2017-01-03 07:02] LABS: A/G RATIO 0.8 (0.7-1.9); ALBUMIN 2.5 G/DL (3.5-5.0); ALKALINE PHOSPHATASE 65 U/L (45-117); BUN (BLOOD UREA NITROGEN) 27 MG/DL (6-23); CALCIUM, SERUM 8.2 MG/DL (8.5-10.4); CHLORIDE, SERUM 98 MMOL/L (96-112); CO2 (CARBON DIOXIDE) 30 MMOL/L (24-34); GFR AFRICAN AMERICAN 87 ML/MIN (>=60); GFR NON AFRICAN AMERICAN 75 ML/MIN (>=60); GLUCOSE, SERUM 83 MG/DL (60-99); POTASSIUM, SERUM 3.5 MMOL/L (3.5-5.3); SGOT(AST) 29 U/L (5-40); SGPT(ALT) 20 U/L (5-65); SODIUM, SERUM 139 MMOL/L (135-148); TOTAL BILIRUBIN 0.4 MG/DL (0-1.2); TOTAL PROTEIN 5.5 G/DL (6.0-8.5)
[2017-01-04 06:29] LABS: BUN (BLOOD UREA NITROGEN) 28 MG/DL (6-23); CALCIUM, SERUM 8.2 MG/DL (8.5-10.4); CHLORIDE, SERUM 99 MMOL/L (96-112); CO2 (CARBON DIOXIDE) 27 MMOL/L (24-34); CREATININE 0.91 MG/DL (0.70-1.30); GFR AFRICAN AMERICAN 86 ML/MIN (>=60); GFR NON AFRICAN AMERICAN 74 ML/MIN (>=60); GLUCOSE, SERUM 82 MG/DL (60-99); POTASSIUM, SERUM 3.4 MMOL/L (3.5-5.3); SODIUM, SERUM 139 MMOL/L (135-148)
[2017-01-04 06:42] LABS: BASOPHILS 0.4 %; BASOPHILS ABSOLUTE 0.06 10/3/uL (0.0-0.16); EOSINOPHILS 1.5 %; HEMATOCRIT 25.6 % (40.0-51.0); HEMOGLOBIN 8.7 g/dL (13.6-17.8); IMMATURE GRANULOCYTES 0.5 %; IMMATURE GRANULOCYTES ABSOLUTE 0.07 10/3/uL (0.0-0.11); LYMPHOCYTES 10.2 %; MEAN CORPUSCULAR HEMOGLOB 35.1 pg (26.0-34.0); MEAN CORPUSCULAR VOLUME 103.2 fL (80-100); MEAN PLATELET VOLUME 9.5 fL (9.2-13.0); MONOCYTES 16.7 %; MONOCYTES ABSOLUTE 2.29 10/3/uL (0.21-1.20); NEUTROPHILS 70.7 %; NEUTROPHILS ABSOLUTE 9.66 10/3/uL (2.02-8.40); RBC DISTRIBUTION WIDTH 16.4 % (12.0-16.0); RED CELL COUNT 2.48 10/6/uL (4.7-6.1); WHITE BLOOD CELLS 13.7 10/3/uL (4.5-10.5)
[2017-01-04 06:52] LABS: PLATELET COUNT 785 10/3/uL (150-400)
[2017-01-04 06:53] LABS: MANUAL DIFF NO %
[2017-01-05 06:17] LABS: BASOPHILS 0.4 %; BASOPHILS ABSOLUTE 0.06 10/3/uL (0.0-0.16); EOSINOPHILS 2.1 %; EOSINOPHILS ABSOLUTE 0.35 10/3/uL (0.0-0.53); HEMATOCRIT 23.7 % (40.0-51.0); HEMOGLOBIN 8.1 g/dL (13.6-17.8); IMMATURE GRANULOCYTES 0.5 %; IMMATURE GRANULOCYTES ABSOLUTE 0.08 10/3/uL (0.0-0.11); LYMPHOCYTES 8.3 %; LYMPHOCYTES ABSOLUTE 1.39 10/3/uL (0.67-4.30); MEAN CORPUS HGB CONC 34.2 g/dL (32.0-36.0); MEAN CORPUSCULAR HEMOGLOB 34.9 pg (26.0-34.0); MEAN CORPUSCULAR VOLUME 102.2 fL (80-100); MEAN PLATELET VOLUME 9.6 fL (9.2-13.0); MONOCYTES 13.8 %; MONOCYTES ABSOLUTE 2.31 10/3/uL (0.21-1.20); NEUTROPHILS 74.9 %; NEUTROPHILS ABSOLUTE 12.49 10/3/uL (2.02-8.40); NUCLEATED RED BLOOD CELLS 0.2 /100WBC (0-0); RBC DISTRIBUTION WIDTH 16.3 % (12.0-16.0); RED CELL COUNT 2.32 10/6/uL (4.7-6.1); WHITE BLOOD CELLS 16.7 10/3/uL (4.5-10.5)
[2017-01-05 06:19] LABS: MANUAL DIFF NO %; PLATELET COUNT 720 10/3/uL (150-400)
[2017-01-05 06:22] LABS: CHLORIDE, SERUM 101 MMOL/L (96-112); CO2 (CARBON DIOXIDE) 28 MMOL/L (24-34); CREATININE 0.83 MG/DL (0.70-1.30); GFR AFRICAN AMERICAN 90 ML/MIN (>=60); GFR NON AFRICAN AMERICAN 78 ML/MIN (>=60); GLUCOSE, SERUM 88 MG/DL (60-99); POTASSIUM, SERUM 3.7 MMOL/L (3.5-5.3); SODIUM, SERUM 136 MMOL/L (135-148)
[2017-01-05 06:24] LABS: BUN (BLOOD UREA NITROGEN) 22 MG/DL (6-23)
[2017-01-06 05:51] LABS: BUN (BLOOD UREA NITROGEN) 19 MG/DL (6-23); CALCIUM, SERUM 8.1 MG/DL (8.5-10.4); CHLORIDE, SERUM 101 MMOL/L (96-112); CO2 (CARBON DIOXIDE) 27 MMOL/L (24-34); CREATININE 0.98 MG/DL (0.70-1.30); GFR AFRICAN AMERICAN 79 ML/MIN (>=60); GFR NON AFRICAN AMERICAN 68 ML/MIN (>=60); POTASSIUM, SERUM 3.8 MMOL/L (3.5-5.3); SODIUM, SERUM 135 MMOL/L (135-148)
[2017-01-06 05:52] LABS: GLUCOSE, SERUM 111 MG/DL (60-99)
[2017-01-06 05:53] LABS: BASOPHILS 0.4 %; BASOPHILS ABSOLUTE 0.08 10/3/uL (0.0-0.16); EOSINOPHILS 1.7 %; EOSINOPHILS ABSOLUTE 0.31 10/3/uL (0.0-0.53); HEMATOCRIT 23.9 % (40.0-51.0); HEMOGLOBIN 8.2 g/dL (13.6-17.8); IMMATURE GRANULOCYTES 0.5 %; IMMATURE GRANULOCYTES ABSOLUTE 0.09 10/3/uL (0.0-0.11); LYMPHOCYTES ABSOLUTE 2.05 10/3/uL (0.67-4.30); MEAN CORPUS HGB CONC 34.3 g/dL (32.0-36.0); MEAN CORPUSCULAR HEMOGLOB 34.5 pg (26.0-34.0); MEAN CORPUSCULAR VOLUME 100.4 fL (80-100); MEAN PLATELET VOLUME 9.6 fL (9.2-13.0); MONOCYTES 12.1 %; MONOCYTES ABSOLUTE 2.27 10/3/uL (0.21-1.20); NEUTROPHILS 74.3 %; NEUTROPHILS ABSOLUTE 13.92 10/3/uL (2.02-8.40); RBC DISTRIBUTION WIDTH 16.2 % (12.0-16.0); RED CELL COUNT 2.38 10/6/uL (4.7-6.1); WHITE BLOOD CELLS 18.7 10/3/uL (4.5-10.5)
[2017-01-06 05:57] LABS: MANUAL DIFF NO %; PLATELET COUNT 738 10/3/uL (150-400)
[2017-01-06 06:18] LABS: PROCALCITONIN <0.05 ng/mL (<0.5)
[2017-01-07 06:10] LABS: BUN (BLOOD UREA NITROGEN) 17 MG/DL (6-23); CALCIUM, SERUM 8.2 MG/DL (8.5-10.4); CHLORIDE, SERUM 100 MMOL/L (96-112); CO2 (CARBON DIOXIDE) 27 MMOL/L (24-34); CREATININE 0.91 MG/DL (0.70-1.30); GFR AFRICAN AMERICAN 86 ML/MIN (>=60); GFR NON AFRICAN AMERICAN 74 ML/MIN (>=60); GLUCOSE, SERUM 109 MG/DL (60-99); POTASSIUM, SERUM 3.6 MMOL/L (3.5-5.3); SODIUM, SERUM 135 MMOL/L (135-148)
[2017-01-07 06:25] LABS: BASOPHILS 0.4 %; BASOPHILS ABSOLUTE 0.07 10/3/uL (0.0-0.16); EOSINOPHILS 1.5 %; EOSINOPHILS ABSOLUTE 0.23 10/3/uL (0.0-0.53); HEMATOCRIT 24.4 % (40.0-51.0); HEMOGLOBIN 8.3 g/dL (13.6-17.8); IMMATURE GRANULOCYTES 0.6 %; LYMPHOCYTES 13.1 %; LYMPHOCYTES ABSOLUTE 2.07 10/3/uL (0.67-4.30); MEAN CORPUSCULAR HEMOGLOB 34.7 pg (26.0-34.0); MEAN CORPUSCULAR VOLUME 102.1 fL (80-100); MEAN PLATELET VOLUME 10.1 fL (9.2-13.0); MONOCYTES 13.5 %; MONOCYTES ABSOLUTE 2.13 10/3/uL (0.21-1.20); NEUTROPHILS 70.9 %; NEUTROPHILS ABSOLUTE 11.21 10/3/uL (2.02-8.40); PLATELET COUNT 696 10/3/uL (150-400); RED CELL COUNT 2.39 10/6/uL (4.7-6.1); WHITE BLOOD CELLS 15.8 10/3/uL (4.5-10.5)
[2017-01-07 06:32] LABS: MANUAL DIFF NO %
== END 2017-01-07 15:25 | DRG 799 ==
LOC: ER 21:08 → 6NO 23:17 → SDC/OF 12-29 16:29 → MIC 12-29 18:28 → 6NO 12-31 18:45
PROVIDERS: Emergency Medicine; Internal Medicine; Internal Medicine Critical Care Medicine; Specialist
PROC: 07TP0ZZ Resection of Spleen, Open Approach (ICD-10-PCS; principal; 2016-12-28)
PROC: 30233N1 Transfusion of Nonautologous Red Blood Cells into Peripheral Vein, Percutaneous Approach (ICD-10-PCS; 2016-12-30)
DX: D73.5 Infarction of spleen (principal); J96.01 Acute respiratory failure with hypoxia; N17.0 Acute kidney failure with tubular necrosis; I95.9 Hypotension, unspecified; D62 Acute posthemorrhagic anemia; S22.32XA Fracture of one rib, left side, initial encounter for closed fracture; D47.1 Chronic myeloproliferative disease; J98.11 Atelectasis; Z23 Encounter for immunization; I10 Essential (primary) hypertension; N40.0 Benign prostatic hyperplasia without lower urinary tract symptoms; M81.0 Age-related osteoporosis without current pathological fracture; W19.XXXA Unspecified fall, initial encounter; Z86.73 Personal history of transient ischemic attack (TIA), and cerebral infarction without residual deficits; Z87.891 Personal history of nicotine dependence; Z91.030 Bee allergy status; Z88.1 Allergy status to other antibiotic agents; Z88.0 Allergy status to penicillin; Z79.899 Other long term (current) drug therapy
CPT/HCPCS: 36415; 36600; 70450; 71010; 71020; 71250; 74000; 74176; 80048; 80053; 81001; 82533; 82805; 82962; 83036; 83605; 83735; 83880; 84145; 84443; 84484; 85014; 85018; 85025; 85610; 85730; 86140; 86850; 86900; 86901; 86920; 87040; 87641; 88305; 88312; 90471; 90472; 90620; 90648; 90670; 90734; 93306; 94640; 94667; 94668; 96374; 97110-GP; 97116-GP; 97162-GP; 99285; A9270-GY; C9113; G0008; G0009; G8978-CL-GP; G8979-CJ-GP; J0330; J0456; J1170; J1940; J2370; J2405; J2710; J3010; J3370; P9016; P9045